=== PATIENT | male | born 1950 | race Hispanic/Latino ===

== ENCOUNTER 2019-07-12 08:44 | Outpatient (CLI) | payer MEDICARE ==
--- NOTE | 2019-07-12 09:35 | CT ---
Exam: Noncontrast chest CT; CT lung scan low dose HISTORY:Nicotine dependence. COMPARISON: None TECHNIQUE: Low-dose screening lung CT is performed utilizing institutional protocol FINDINGS: Lung screening specific (LUNG-RADS): 4: Positive. Spiculated solid nodule abutting the posterior lito r fissure measuring 1.4 x 0.7 cm. Nodule is located in the posterior inferior right upper lobe. Potential significant incidentals (lung RADS category S): None Pulmonary incidentals:Mild emphysematous changes with areas of scar and atelectasis throughout the alba ng parenchyma. Other incidentals: Atherosclerosis of the aorta. Atherosclerosis of the aortic valve. Calcification o f mitral annulus. IMPRESSION: 1. Lung RADS 4: Positive. Spiculated solid nodule in the right upper lobe, adjacent to the minor fiss ure. 2. Lung Rask category S: Negative. No new or unknown potential significant incidental findings requir ing urgent additional evaluation 3. Other incidentals as above. Recommendation: Pulmonary consultation is recommended Code lung nodule
== END 2019-07-12 08:45 | disposition home or self-care (01) ==
LOC: CT 08:44
PROVIDERS: ATTEND Internal Medicine
DX: Z12.2 Encounter for screening for malignant neoplasm of respiratory organs (principal); F17.210 Nicotine dependence, cigarettes, uncomplicated; R91.1 Solitary pulmonary nodule
CPT/HCPCS: G0297

== ENCOUNTER 2019-08-25 07:55 | Outpatient (CLI) | payer MEDICARE ==
--- NOTE | 2019-08-25 10:21 | PET ---
Nuclear medicine FDG PET/CT: (Positron emission tomography and computed tomography) DATE: 08/25/2019 HISTORY: 68-year-old male with right upper lobe lung nodule on low dose screening chest CT COMPARISON: none TECHNIQUE: IV injection of F-18 fluorodeoxyglucose (FDG) dose: 12.3 mCi. PET scan and attenuation correction CT performed from skull base to proximal thighs. FINDINGS: SUV (standard uptake values) numbers given are maximum SUVs. QCLR used. The pulmonary nodule mentioned on the CT report of 07/12/2019, is not FDG-avid. SUV is 0.8. The pulmon tiffanie nodule craniocaudal dimension is very thin, 3 mm, relative to the measurements and the axial plane, which are 14 x 7 mm. It broadly abuts the posterior aspect of the right minor fissure. The mor phology, orientation, and location are consistent with a benign intrapulmonary lymph node. Adjacent to that, there is focal pleural thickening, which is also not hypermetabolic, consistent with scar (S UV 0.9). Small right axillary lymph node with mildly noticeable uptake is not suspicious, SUV 1.4. There is no abnormal hypermetabolic activity in the neck, chest, abdomen, or pelvis.. IMPRESSION: 1. No evidence of malignancy. 2. Recommend return to routine annual screening low dose chest CT.
== END 2019-08-25 07:56 | disposition home or self-care (01) ==
LOC: PET 07:55
PROVIDERS: ATTEND Internal Medicine Critical Care Medicine
DX: R91.1 Solitary pulmonary nodule (principal)
CPT/HCPCS: 78815; A9552